=== PATIENT | male | born 1980 | race Caucasian/White ===

== ENCOUNTER 2019-05-09 21:01 | Emergency (ER) | payer BC ==
[~2019-05-09] VITALS: Ht 182.9 cm; Wt 108.9 kg
[~2019-05-09 21:01] MED LIST: CORTICOOL 1%42.53 GM TP; FLEXERIL PO; PREDNISONE 10 M10 M1 PO; ULTRAM 50MG TAB50 MG PO; VISTARIL 25 MG25 M1 PO
[2019-05-09] MEDS ORDERED: ZESTRIL5 MG PO (21:08)
[2019-05-09 21:24] LABS: ABSOLUTE BASOPHILS 0.1 thou/uL (0.0-0.2); ABSOLUTE EOSINOPHILS 0.2 thou/uL (0.0-0.7); ABSOLUTE MONOCYTES 0.6 thou/uL (0.0-1.2); ABSOLUTE NEUTROPHILS 5.4 thou/uL (1.6-8.1); BASOPHILS 0.7 %; EOSINOPHILS 2.9 %; HEMATOCRIT 39.7 % (42.0-52.0); HEMOGLOBIN 13.6 gm/dL (14.0-18.0); LYMPHOCYTES 24.1 %; MCH 30.8 pg (26.0-34.0); MCHC 34.2 g/dL (28.0-37.0); MCV 90.1 fL (80.0-100.0); MONOCYTES 7.5 %; MPV 9.4 fl. (7.2-11.1); NUCLEATED RBCS 0 /100WBC; PLATELET COUNT* 219 thou/uL (150-400); POLYS 64.8 %; RDW-CV 13.5 % (10.5-14.5); WBC 8.3 thou/uL (4.0-11.0)
[2019-05-09 21:36] LABS: CALCIUM 8.1 mg/dL (8.5-10.1); CREATININE 1.1 mg/dL (0.6-1.3); POTASSIUM 3.8 mmol/L (3.5-5.1)
[2019-05-09 21:48] LABS: ALBUMIN 3.4 g/dL (3.4-5.0); TOTAL BILIRUBIN 0.1 mg/dL (<0.1-1.0); TOTAL PROTEIN 6.8 g/dL (6.4-8.2)
[2019-05-10] MEDS ORDERED: PEPCID40 MG PO (00:11)
[2019-05-10] MEDS ORDERED: ZOFRAN ODT4 MG PO (00:11)
[2019-05-10] MEDS ORDERED: HYDROCODON-ACE1 EAC7 PO (00:11)
[2019-05-10 00:21] VITALS: BP 122/68
--- NOTE | 2019-05-10 13:13 | EKG ---
[place] [address] ELECTROCARDIOGRAM REPORT Name: REBEKAH SINGH [id number] Admission: 05/09/19 Attend Phys: Discharge: 05/10/19 Date of : 82 Report #: [id number] THIS REPORT FOR: //name// [facility] ED Test Date: 2019-05-09 Test Time: 21:05:28 Pat Name: REBEKAH SINGH Department: Room: Gender: M Information Services Manager: : 1980 Requested By: Pantera Orosco Order Number: [id number] MD: Stanley Coffey Measurements Intervals [place] Rate: 71 P: 43 HI: 180 QRS: 26 QRSD: 92 T: 35 QT: 371 QTc: 404 Interpretive Statements Sinus rhythm Probable left atrial enlargement No previous ECG available for comparison Electronically Signed On 05-10-2019 13:13:37 COLLAR FUSER by Stanley Coffey [email or web address] <ELECTRONICALLY SIGNED> By: Stanley Coffye MD, [facility] 05/10/19 1313 2105 04 Stanley Coffey MD, FACC /EPI
== END 2019-05-10 00:21 | disposition home or self-care (01) ==
LOC: M.ERS 21:01
PROVIDERS: Emergency Medicine
DX: R10.13 Epigastric pain (principal); F17.210 Nicotine dependence, cigarettes, uncomplicated; Z88.2 Allergy status to sulfonamides; Z88.8 Allergy status to other drugs, medicaments and biological substances

== ENCOUNTER → 2019-05-17 | Outpatient (CLI) | payer BC ==
[~2019-05-17] MED LIST changes: +HYDROCODON-ACE1 EAC7 PO; +PEPCID40 MG PO; +ZESTRIL5 MG PO; +ZOFRAN ODT4 MG PO
== END ==
LOC: M.ULTRA 07:28
DX: K80.20 Calculus of gallbladder without cholecystitis without obstruction (principal)

== ENCOUNTER 2020-02-12 09:37 | Emergency (ER) | payer BC ==
[~2020-02-12] VITALS: Ht 182.9 cm; Wt 113.4 kg
[2020-02-12 09:57] LABS: ABSOLUTE BASOPHILS 0.1 thou/uL (0.0-0.2); ABSOLUTE EOSINOPHILS 0.2 thou/uL (0.0-0.7); ABSOLUTE LYMPHOCYTES 1.6 thou/uL (0.8-5.3); ABSOLUTE MONOCYTES 0.9 thou/uL (0.0-1.2); ABSOLUTE NEUTROPHILS 8.4 thou/uL (1.6-8.1); BASOPHILS 0.5 %; EOSINOPHILS 1.4 %; HEMATOCRIT 40.9 % (42.0-52.0); LYMPHOCYTES 14.1 %; MCH 30.7 pg (26.0-34.0); MCHC 34.3 g/dL (28.0-37.0); MCV 89.6 fL (80.0-100.0); MONOCYTES 8.1 %; MPV 9.6 fl. (7.2-11.1); NUCLEATED RBCS 0 /100WBC; PLATELET COUNT* 223 thou/uL (150-400); POLYS 75.9 %; RBC 4.56 mil/uL (4.50-6.00); RDW-CV 13.6 % (10.5-14.5)
[2020-02-12 10:07] LABS: CALCIUM 9.3 mg/dL (8.5-10.1); CREATININE 1.2 mg/dL (0.6-1.3); POTASSIUM 3.6 mmol/L (3.5-5.1)
[2020-02-12 10:09] LABS: APTT 26.3 Seconds (25.0-31.3); PROTIME 9.9 Seconds (9.20-11.50)
[2020-02-12 10:31] LABS: ALBUMIN 3.9 g/dL (3.4-5.0); CK-MB MASS 2.4 ng/mL (<0.5-3.6); TOTAL BILIRUBIN 0.5 mg/dL (<0.1-1.0)
[2020-02-12] MEDS ORDERED: ZOFRAN ODT4 MG SUBLING (11:02)
[2020-02-12] MEDS ORDERED: NORCO 5-325 TA1 EAC2 PO (11:02)
[2020-02-12 11:41] VITALS: BP 110/65
--- NOTE | 2020-02-13 13:59 | EKG ---
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[facility] [place] 1980 Requested By: Milan Vuong Order Number: [id number] MD: Daljit Becker Measurements Intervals [place] Rate: 79 P: 32 [place]: 171 QRS: 12 QRSD: 92 T: 31 QT: 423 QTc: 486 Interpretive Statements Sinus rhythm Borderline T abnormalities, anterior leads Compared to ECG 05/09/2019 21:05:28 T-wave abnormality now present Electronically Signed On 02-13-2020 13:59:17 CDT by Daljit Becker [email or web address] <ELECTRONICALLY SIGNED> By: Daljit Becker MD, [facility] 02/13/20 1359 0941 0941 Daljit Becker MD, [facility] /EPI
== END 2020-02-12 11:41 | disposition home or self-care (01) ==
LOC: M.ERS 09:37
PROVIDERS: Family Medicine
DX: R07.89 Other chest pain (principal); R10.10 Upper abdominal pain, unspecified; I10 Essential (primary) hypertension; F17.210 Nicotine dependence, cigarettes, uncomplicated; Z88.1 Allergy status to other antibiotic agents

== ENCOUNTER → 2021-01-05 | Outpatient (CLI) | payer BC ==
[~2021-01-05] MED LIST changes: +NORCO 5-325 TA1 EAC2 PO; +ZOFRAN ODT4 MG SUBLING
== END ==
LOC: M.MRI 11:30
PROVIDERS: ATTEND Family Medicine
DX: M51.37 Other intervertebral disc degeneration, lumbosacral region (principal); M48.07 Spinal stenosis, lumbosacral region; M54.32 Sciatica, left side; Z68.38 Body mass index [BMI] 38.0-38.9, adult; Z76.89 Persons encountering health services in other specified circumstances; I10 Essential (primary) hypertension